=== PATIENT | male | born 1995 | race Caucasian/White ===

== ENCOUNTER → 2019-08-05 | Outpatient (CLI) | payer OTHER | LOC: COL.RAD 10:30 | DX: M25.552 Pain in left hip (principal) | CPT/HCPCS: J3301; Q9967 ==

== ENCOUNTER → 2019-12-09 | Outpatient (CLI) | payer OTHER | LOC: MHCPAIN 10:03 | DX: M79.2 Neuralgia and neuritis, unspecified (principal) | CPT/HCPCS: G0463 ==